=== PATIENT | male | born 1950 | race Caucasian/White ===

== ENCOUNTER 2018-07-18 09:02 | Outpatient (CLI) | payer MEDICARE, OTHER ==
[~2018-07-18] VITALS: Ht 177.8 cm; Wt 102.1 kg
[2018-07-18] MEDS ORDERED: LOSARTAN POTASS50 MG ORAL (10:08)
[2018-07-18] MEDS ORDERED: DEXILANT60 MG ORAL (10:08)
[2018-07-18] MEDS ORDERED: METOPROLOL SUCC25 MG ORAL (10:08)
[2018-07-18] MEDS ORDERED: PLAVIX75 MG ORAL (10:08)
[2018-07-18] MEDS ORDERED: [UNRECOGNIZED DRUG - OTHER] PO (10:08)
[2018-07-18] MEDS ORDERED: ASPIRIN EC81 MG ORAL (10:08)
[2018-07-18 10:20] VITALS: BP 134/76
[2018-07-18] MEDS ORDERED: METFORMIN HCL500 M1 ORAL (11:59)
--- NOTE | 2018-07-18 18:55 | GI Initial Consult Note ---
History of Present Illness General Date patient seen: Jul 18, 2018 Time patient seen: 11:00 Referring physician: RENARD Reason for Consultation: ABDOMINAL PAIN Present Illness HPI 68 year old male patient presents today with c/o of abdominal pain and bloating. Describes his pain and burning. In addition, he has complaints of constipation. His bowels are moved slow and he is unable to evacuate completely. His last EGD/colonoscopy was approximately 2-3 years ago in which he stated normal findings. Denies any unintentional weight loss or changes in dietary habits. No signs of abuse or neglect. Patient is not fall risk. Home Meds Reported Medications Metformin Hcl* (METFORMIN HCL*) 500 Mg Tablet, ORAL TWICE A DAY, TAB 07/18/18 [Ursolic Acid ] No Conflict Check, 40 MG PO DAILY 07/18/18 Dexlansoprazole (Dexilant) 60 Mg Cap.bp, 60 MG ORAL DAILY, CAP 07/18/18 Metoprolol Succinate* (METOPROLOL SUCCINATE*) 25 Mg Tab.er.24h, 25 MG ORAL DAILY , TAB 07/18/18 Losartan Potassium* (LOSARTAN POTASSIUM*) 50 Mg Tablet, 100 MG ORAL DAILY, TAB 07/18/18 Aspirin Ec* (ASPIRIN EC*) 81 Mg Tablet., 81 MG ORAL DAILY, TAB 07/18/18 Clopidogrel Bisulfate* (PLAVIX*) 75 Mg Tablet, 75 MG ORAL DAILY, TAB 07/18/18 Med list reviewed/reconciled: Yes Allergies: Coded Allergies: No Known Allergies (Unverified , 07/18/18) Patient History History Provided By: Patient, Medical Record PMH Narrative Prostate CA with surgery, radiation. HTN CAD Past Surgical History: Prostatectomy Cardiac Stent x2 in February 2018. Pertinent Family History: none Social History: Reports: smoking, alcohol use - daily Review of Systems All Other Systems: negative except mentioned in HPI Physical Exam Vital Signs Date Time Temp Pulse Resp B/P (MAP) Pulse Ox O2 Delivery O2 Flow Rate FiO2 07/18/18 10:20 97.6 102 20 134/76 94 97.6 Sp02 EP Interpretation: reviewed, normal General Appearance: well appearing, no apparent distress, alert Head: normocephalic EENT: PERRL/EOMI, normal ENT inspection Neck: supple Respiratory: normal breath sounds, no respiratory distress Cardiovascular: normal rate Gastrointestinal: normal inspection, non tender, soft, normal bowel sounds, non -distended Rectal: deferred Genitourinary: deferred Musculoskeletal: normal inspection, back normal Neurologic: normal inspection, alert, oriented x3, responsive Psychiatric: normal inspection, judgement/insight normal, memory normal Skin: normal inspection, normal color, no rash, warm/dry, palpation normal, well hydrated Lymphatic: normal inspection, no adenopathy GI: Plan Problems: (1) Small intestinal bacterial overgrowth (2) Abdominal pain (3) Constipation (4) History of prostate cancer (5) HTN (hypertension) (6) CAD (coronary artery disease) Plan s/p Xifaxan x 3 without response dc metformin trial VSL #3 avoid ETOH RTC x [address] Eubanks. Thank you for this patient referral. The patient was seen and examined at bedside and all new and available data was reviewed in the patients chart. I agree with the above findings, impression and plan. (Patient seen earlier today. Signature stamp does not reflect patient encounter time.). - MD Karyn ChandUnited States Air Force [facility] ClinicRadha BUSINESS LIBRARIAN Jul 18, 2018 18:55
[2018-07-20] MEDS ORDERED: TWYNSTA ORAL (12:42)
== END 2018-07-18 09:32 | disposition home or self-care (01) ==
LOC: PAN 09:02
DX: R10.9 Unspecified abdominal pain (principal); R14.0 Abdominal distension (gaseous); K59.00 Constipation, unspecified; Z85.46 Personal history of malignant neoplasm of prostate; I25.10 Atherosclerotic heart disease of native coronary artery without angina pectoris; A04.9 Bacterial intestinal infection, unspecified
CPT/HCPCS: 99202